=== PATIENT | male | born 1950 | race Caucasian/White ===

== ENCOUNTER → 2017-07-20 | Outpatient (CLI) | payer MEDICARE ==
--- NOTE | 2017-07-20 14:51 | CARD ---
MR#: [id number] Date of Study: 07/20/2017 Ordering Physician: JONATHON HOWARD, Referring Physician: JONATHON HOWARD, Tech: CHELY Sanchez APPROVED REPORT EXAM: Two-dimensional and M-mode echocardiogram with Doppler and color Doppler. Other Information Quality : GoodHR: 73bpm INDICATION Atrial Fibrillation 2D DIMENSIONS Left Atrium(2D)2.9 (1.6-4.0cm)IVSd1.0 (0.7-1.1cm) Aortic Root(2D)3.3 (2.0-3.7cm)LVDd4.2 (3.9-5.9cm) LVOT Diameter2.0 (1.8-2.4cm)PWd1.3 (0.7-1.1cm) LVDs2.5 (2.5-4.0cm)FS (%) 41.9 % SV59.0 mlLVEF(%)73.2 (>50%) Aortic Valve AoV Peak Rosales.172.4cm/sAoV VTI34.6cm AO Peak GR.11.9mmHgLVOT Peak Rosales.104.5cm/s LVOT VTI 20.41cmAO Mean GR.6mmHg JARETT (VMAX)2.38cl8OGO (VTI)1.94cm2 Mitral Valve MV E Grpeyuql42.2cm/sMV DECEL THLN710gx MV A Dtfvuxcv26.3cm/sE/A Ratio1.3 Pulmonary Valve PV Peak Eqacbpux850.3cm/sPV Peak Grad.5mmHg Tricuspid Valve TR P. Slhebxxk910cj/sTR Peak Gr.29mmHg Pulmonary Vein S1 Shkugjga21.0cm/sD2 Yeebrndf01.6cm/s LEFT VENTRICLE The left ventricle is normal size. There is mild hypertrophy of LVPW. The left ventricular systolic f unction is normal. The ejection fraction is estimated at 65%. There is normal LV segmental wall motio n. The left ventricular diastolic function and filling is normal for age. RIGHT VENTRICLE The right ventricle is normal size. The right ventricular systolic function is normal. ATRIA The left atrium size is normal. The right atrium size is normal. The interatrial septum is intact wit h no evidence for an atrial septal defect or patent foramen ovale as noted on 2-D or Doppler imaging. AORTIC VALVE The aortic valve is thickened but opens well. Doppler and Color Flow revealed no significant aortic r egurgitation. There is no significant aortic valvular stenosis. There is no aortic valvular vegetatio n. MITRAL VALVE The mitral valve is thickened but opens well. There is no evidence of mitral valve prolapse. There is no mitral valve stenosis. Doppler and Color Flow revealed no mitral valve regurgitation noted. TRICUSPID VALVE The tricuspid valve is normal in structure and function. Doppler and Color Flow revealed no tricuspid valve regurgitation noted. There is no tricuspid valve prolapse or vegetation. There is no tricuspid valve stenosis. PULMONIC VALVE The pulmonic valve is not well visualized. Doppler and Color Flow revealed no pulmonic valvular regur gitation. There is no pulmonic valvular stenosis. GREAT VESSELS The aortic root is normal in size. The IVC is normal in size and collapses >50% with inspiration. PERICARDIAL EFFUSION There is no pleural effusion. There is no evidence of significant pericardial effusion. Critical Notification Critical Value: No <Conclusion> The left ventricular systolic function is normal. The ejection fraction is estimated at 65%. There is normal LV segmental wall motion. There is no evidence of significant pericardial effusion. Signed by : Jonathon Howard, Electronically Approved : 07/20/2017 14:50:14
== END | disposition home or self-care (01) ==
LOC: ECHO 13:52
PROVIDERS: ATTEND Internal Medicine Cardiovascular Disease
DX: I48.0 Paroxysmal atrial fibrillation (principal)
CPT/HCPCS: 93306

== ENCOUNTER → 2018-07-26 | Outpatient (CLI) | payer MEDICARE ==
--- NOTE | 2018-07-26 09:53 | CARD ---
MR#: [id number] Date of Study: 07/26/2018 Ordering Physician: NEERU HEATON, Referring Physician: NEERU HEATON, Tech: Sarina Burns RDCS APPROVED REPORT EXAM: Two-dimensional and M-mode echocardiogram with Doppler and color Doppler. Other Information Quality : GoodHR: 70bpm Rhythm : NSR INDICATION Atrial Fibrillation 2D DIMENSIONS RVDd3.4 (2.9-3.5cm)Left Atrium(2D)3.4 (1.6-4.0cm) IVSd0.9 (0.7-1.1cm)Aortic Root(2D)3.1 (2.0-3.7cm) LVDd4.4 (3.9-5.9cm)LVOT Diameter2.3 (1.8-2.4cm) PWd1.0 (0.7-1.1cm)LVDs3.2 (2.5-4.0cm) FS (%) 26.3 %SV44.2 ml LVEF(%)52.0 (>50%) M-Mode DIMENSIONS Left Atrium(MM)3.68 (2.5-4.0cm)Aortic Root3.54 (2.2-3.7cm) Aortic Valve AoV Peak Rosales.118.6cm/sAoV VTI25.8cm AO Peak GR.5.6mmHgLVOT Peak Rosales.100.9cm/s LVOT VTI 25.72cmAO Mean GR.2mmHg JARETT (VMAX)3.57wp2KCA (VTI)3.97cm2 Mitral Valve MV E Mtojtjno26.9cm/sMV DECEL OMDT964cu MV A Vjzbjddb25.6cm/sE/A Ratio1.3 Pulmonary Valve PV Peak Ndqevwxw799.2cm/sPV Peak Grad.5mmHg Tricuspid Valve TR P. Epqnhcsh051th/sRAP YFGCJVOB6dxRs TR Peak Gr.60beNcYSGJ42yxIl Pulmonary Vein S1 Aolsmcxf27.9cm/sD2 Wkcllszj60.5cm/s LEFT VENTRICLE The left ventricle is normal size. There is normal left ventricular wall thickness. The left ventricu lar systolic function is normal. The Ejection Fraction is 55-60%. There is normal LV segmental wall m otion. Transmitral Doppler flow pattern is Grade II-pseudonormal filling dynamics. RIGHT VENTRICLE The right ventricle is normal size. There is normal right ventricular wall thickness. The right ventr icular systolic function is normal. ATRIA The left atrium size is normal. The right atrium size is normal. The interatrial septum is intact wit h no evidence for an atrial septal defect or patent foramen ovale as noted on 2-D or Doppler imaging. AORTIC VALVE The aortic valve is normal in structure and function. The aortic valve is trileaflet. Doppler and Col or Flow revealed no significant aortic regurgitation. There is no significant aortic valvular stenosi s. MITRAL VALVE The mitral valve is normal in structure and function. There is no evidence of mitral valve prolapse. There is no mitral valve stenosis. Doppler and Color Flow revealed no mitral valve regurgitation note d. TRICUSPID VALVE The tricuspid valve is normal in structure and function. Doppler and Color Flow revealed trace tricus pid regurgitation. The PA pressure was estimated at 32 mmHg. There is no tricuspid valve prolapse or vegetation. There is no tricuspid valve stenosis. PULMONIC VALVE The pulmonary valve is normal in structure and function. Doppler and Color Flow revealed no pulmonic valvular regurgitation. There is no pulmonic valvular stenosis. GREAT VESSELS The aortic root is normal in size. The ascending aorta is normal in size. The IVC is normal in size a nd collapses >50% with inspiration. PERICARDIAL EFFUSION There is no evidence of significant pericardial effusion. Critical Notification Critical Value: No <Conclusion> The left ventricular systolic function is normal. The Ejection Fraction is 55-60%. There is normal LV segmental wall motion. Trace tricuspid regurgitation. The PA pressure was estimated at 32 mmHg. There is no evidence of significant pericardial effusion. Signed by : Dayron Howard, Electronically Approved : 07/26/2018 09:53:06
== END | disposition home or self-care (01) ==
LOC: ECHO 07:58
PROVIDERS: ATTEND Internal Medicine Cardiovascular Disease
DX: I48.0 Paroxysmal atrial fibrillation (principal)
CPT/HCPCS: 93306

== ENCOUNTER → 2018-08-08 | Outpatient (CLI) | payer MEDICARE ==
--- NOTE | 2018-08-08 09:55 | RAD ---
MR#: [id number] Date of Study: 08/08/2018 Ordering Physician: NEERU GARCES, Referring Physician: NEERU GARCES, Tech: Carolina Morales RVT, [facility] APPROVED REPORT Patient Location: OUT-PATIENT Laterality:Bilateral Indications Grayscale images of the bilateral common carotid and carotid bifurcation reveals mild to moderate non obstructive plaque. Based on color Doppler and spectral imaging there is overall 0 to less than 50% s tenosis. No high-grade flow-limiting stenosis is identified in the external or internal carotid vesse ls. The bilateral vertebral velocities are antegrade and within normal limits. Normal ICA to CCA ratios b ilaterally. Risk Factors Hypertension: PAD Smoking Doppler Spectral Velocity Analysis Right Left pCCA 93/19 cm/spCCA 119/17 cm/s mCCA 84/14 cm/smCCA 94/15 cm/s dCCA 65/11 cm/sdCCA 100/13 cm/s ECA 120/14 cm/sECA 112/19 cm/s pICA 52/11 cm/spICA 74/17 cm/s Samuel 63/15 cm/smICA 86/19 cm/s dICA 64/17 cm/sdICA 94/27 cm/s Vert. 58/ cm/sVert. 64/ cm/s ICA/CCA 0.69ICA/CCA 0.79 Critical Notification Critical Value: No <Conclusion> No significant bilateral carotid occlusive disease. Signed by : Neeru Garces, Electronically Approved : 08/08/2018 09:54:59
--- NOTE | 2018-08-08 10:19 | RAD ---
MR#: [id number] Date of Study: 08/08/2018 Ordering Physician: NEERU GARCES, Referring Physician: NEERU GARCES, Tech: Carolina Morales RVT, [facility] APPROVED REPORT Patient Location: OUT-PATIENT Indications Claudication:Bilaterally Grayscale images of the bilateral lower extremity arterial vessels reveals mild diffuse plaque. There is a patent left SFA stent. Spectral waveforms in the bilateral common femoral, superficial femoral and popliteal vessels are bip hasic in nature without any significant flow-limiting stenosis noted. Below the knee there is bilateral three-vessel runoff without any significant obstruction noted. Risk Factors Hypertension Smoking Surgery/Intervention Angioplasty : Stent : Date : 2003 Site : Left P-M SFA VELOCITY AND DOPPLER WAVEFORM ANALYSIS RIGHT cm/secWaveformSeverity LEFT cm/secWaveform Severity pCFA 218.1BiphasicpCFA 173.5Biphasic Prof Fem Art. 90.0BiphasicProf Fem Art. Fem Art Prox. 122.2BiphasicFem Art Prox. 124.9Biphasic Fem Art Mid. 95.3BiphasicFem Art Mid. 140.3Biphasic Fem Art Dist. 125.9BiphasicFem Art Dist. 140.3Biphasic Pop Art(Fossa) 56.2BiphasicPop Art(AK) 96.0Biphasic ROUTER OPERATOR PIN Prox. 80.2BiphasicPTA Prox. 65.3Biphasic ROUTER OPERATOR PIN Dist. 69.4BiphasicPTA Dist. 76.8Biphasic Per Art Prox. 48.8BiphasicPer Art Prox. 58.6Biphasic ESTRADA Prox. 69.4MonophasicATA Prox. 90.4Biphasic DPA 54BiphasicDPA 64Biphasic Critical Notification Critical Value: No <Conclusion> 1. Mild lower extremity arterial disease without any focal obstruction noted and a patent left SFA st ent. Signed by : Neeru Garces, Electronically Approved : 08/08/2018 10:19:05
== END | disposition home or self-care (01) ==
LOC: US 07:59
PROVIDERS: ATTEND Internal Medicine Cardiovascular Disease
DX: I65.23 Occlusion and stenosis of bilateral carotid arteries (principal); I77.89 Other specified disorders of arteries and arterioles; I10 Essential (primary) hypertension; I73.9 Peripheral vascular disease, unspecified; F17.200 Nicotine dependence, unspecified, uncomplicated
CPT/HCPCS: 93880; 93925

== ENCOUNTER → 2019-05-16 | Outpatient (CLI) | payer MEDICARE ==
[~2019-05-16] MED LIST: ASPI-630 PO; ATORVASTATIN CA80 MG PO; DILT120C55 PO; FLEC100T PO; LISI1TAB19 PO; MULT-245 PO
--- NOTE | 2019-05-16 12:20 | CARD ---
MR#: [id number] Date of Study: 05/16/2019 Ordering Physician: NEERU HEATON, Referring Physician: NEERU HEATON, Tech: Tracy Velez KATHERINE APPROVED REPORT EXAM: Two-dimensional and M-mode echocardiogram with Doppler and color Doppler. Other Information Quality : Good INDICATION Atrial Fibrillation RISK FACTORS Smoking 2D DIMENSIONS RVDd2.6 (2.9-3.5cm)Left Atrium(2D)2.9 (1.6-4.0cm) IVSd0.9 (0.7-1.1cm)Aortic Root(2D)3.3 (2.0-3.7cm) LVDd4.8 (3.9-5.9cm)LVOT Diameter2.0 (1.8-2.4cm) PWd0.9 (0.7-1.1cm)LVDs2.3 (2.5-4.0cm) FS (%) 30.0 %SV90.4 ml LVEF(%)60.0 (>50%) Aortic Valve AoV Peak Rosales.105.4cm/sAoV VTI21.0cm AO Peak GR.4.4mmHgAO Mean GR.2mmHg JARETT (VTI)2.97cm2 Mitral Valve MV E Paunudle64.9cm/sMV DECEL ZMIB188pp MV A Jumvqlzs40.9cm/sE/A Ratio1.4 Tricuspid Valve TR P. Eyltewjh578mp/sRAP EMHVRQDY7qdQk TR Peak Gr.07fiNyFJSP76bhMk LEFT VENTRICLE The left ventricle is normal size. There is normal left ventricular wall thickness. The left ventricu lar systolic function is normal and the ejection fraction is within normal range. The Ejection Fracti on is 60-65%. There is normal LV segmental wall motion. Transmitral Doppler flow pattern is Grade I-a bnormal relaxation pattern. RIGHT VENTRICLE The right ventricle is normal size. The right ventricular systolic function is normal. ATRIA The left atrium size is normal. The right atrium size is normal. The interatrial septum is intact wit h no evidence for an atrial septal defect or patent foramen ovale as noted on 2-D or Doppler imaging. AORTIC VALVE The aortic valve is calcified but opens well. Doppler and Color Flow revealed no significant aortic r egurgitation. There is no significant aortic valvular stenosis. MITRAL VALVE The mitral valve is calcified but opens well. There is no evidence of mitral valve prolapse. There is no mitral valve stenosis. Doppler and Color Flow revealed no mitral valve regurgitation noted. TRICUSPID VALVE The tricuspid valve is normal in structure and function. Doppler and Color Flow revealed trace tricus pid regurgitation. The PA pressure was estimated at 27 mmHg. There is no tricuspid valve stenosis. PULMONIC VALVE The pulmonic valve is not well visualized. Doppler and Color Flow revealed no pulmonic valvular regur gitation. There is no pulmonic valvular stenosis. GREAT VESSELS The aortic root is normal in size. The ascending aorta is normal in size. The IVC is normal in size a nd collapses >50% with inspiration. PERICARDIAL EFFUSION There is no evidence of significant pericardial effusion. Critical Notification Critical Value: No <Conclusion> The left ventricular systolic function is normal and the ejection fraction is within normal range. Th e Ejection Fraction is 60-65%. There is normal LV segmental wall motion. Signed by : Neeru Heaton, Electronically Approved : 05/16/2019 12:19:51
== END | disposition home or self-care (01) ==
LOC: ECHO 10:59
PROVIDERS: ATTEND Internal Medicine Cardiovascular Disease
DX: I08.0 Rheumatic disorders of both mitral and aortic valves (principal); I48.0 Paroxysmal atrial fibrillation
CPT/HCPCS: 93306

== ENCOUNTER → 2019-05-23 | Outpatient (CLI) | payer MEDICARE ==
[~2019-05-23] VITALS: Ht 182.9 cm; Wt 86.2 kg
[~2019-05-23] MED LIST changes: +REGADENOSON 0.4 MG/5 ML DISP.SYRIN. IV ONE
--- NOTE | 2019-05-23 12:34 | RAD ---
MR#: [id number] Date of Study: 05/23/2019 Ordering Physician: NEERU GARCES, Referring Physician: NEERU GARCES, Tech: Carolina Patel RVT, [facility] APPROVED REPORT Patient Location: OUT-PATIENT Indications PAD Grayscale images of the bilateral lower extremity arterial vessels demonstrate mild to moderate diffu se plaque. There is a left SFA stent which appears to be patent. Color Doppler, spectral images and velocities are grossly within normal limits. Mildly elevated veloc ities at the level of the bilateral common femoral arteries but no focal stenosis is identified. Biph asic waveforms seen throughout the lower extremity arterial course with three-vessel runoff below the knee bilaterally. Risk Factors Hypertension Surgery/Intervention Stent : VELOCITY AND DOPPLER WAVEFORM ANALYSIS RIGHT cm/secWaveformSeverity LEFT cm/secWaveform Severity pCFA 229.6BiphasicpCFA 174.1Biphasic Prof Fem Art. 90.0BiphasicProf Fem Art. 76.0Biphasic Fem Art Prox. 133.0BiphasicFem Art Prox. 108.7Biphasic Fem Art Mid. 94.5BiphasicFem Art Mid. 141.0Biphasic Fem Art Dist. 194.6BiphasicFem Art Dist. 102.5Biphasic Pop Art(Fossa) 75.7BiphasicPop Art(AK) 67.7Biphasic CRUISE STAFF MEMBER Prox. 72.2BiphasicPTA Prox. 77.8Biphasic CRUISE STAFF MEMBER Dist. 86.9BiphasicPTA Dist. 93.2Biphasic Per Art Prox. 50.1BiphasicPer Art Prox. 69.4Biphasic ESTRADA Prox. 59.5BiphasicATA Prox. 72.9Biphasic DPA 50BiphasicDPA 84Biphasic Critical Notification Critical Value: No <Conclusion> 1. No significant bilateral lower extremity arterial disease noted. There is a patent left SFA stent. Signed by : Neeru Garces, Electronically Approved : 05/23/2019 12:33:57
--- NOTE | 2019-05-23 15:27 | RAD ---
MR#: [id number] Date of Study: 05/23/2019 Ordering Physician: NEERU GARCES, Referring Physician: JUSTINO HOFF Tech: HARRY Magallanes ARRT (R) (N) APPROVED REPORT Test Type: Pharmacological Stress Nurse/Tech: TAMANNA Chavez Test Indications: paroxysmal a-fib Cardiac History: High cholesterol, Hypertension Medications: See Electronic Medical Record Medical History: See Electronic Medical Record Resting ECG: SR Resting Heart Rate: 55 bpm Resting Blood Pressure: 136/64mmHg Pretest Chest Pain: None Nurse/Tech Notes SR Consent: The procedure was explained to the patient in lay terms. Informed consent was witnessed. Eddy eout was entered into [employer]. History and Stress Test performed by HARRY Magallanes ARRT (R) (N) Pharm. Details Pharmacologic stress testing was performed using 0.4mg per 5ml of regadenoson given intravenously ove r 7-10 seconds. Stress Symptoms SR, NO ACUTE SIGNIFICANT, ACUTE CHANGES WITH STRESS POST EXERCISE Reason for Termination: Infusion complete Target HR: No Max HR: 112 bpm 86% of Maximum Predicted HR: 129 bpm Exercise duration: 6 min:sec, Stage Max Blood Pressure: 169/67mmHg Blood Pressure response to exercise: Normal blood pressure response during stress. Chest Pain: No. Arrhythmia: No. ST Change: No. INTERPRETATION Stress EKG Conclusion: No acute findings Imaging Protocol IMAGE PROTOCOL: Rest Tc-99m/stress Tc-99m 1 day Rest: Stress: Viability: Radiopharm.Tc99m EpdivvpknSg83p Sestamibi Cvvd62xEh 33mCi Img Date 05/23/2019 05/23/2019 Inj-Img Vyor80gun. 60min. Rest Admin Site:IV - Right AntecubitalAdministrator: HARRY Magallanes ARRT (R)(N) Stress Admin Site: IV - Right AntecubitalAdministrator: HARRY Magallanes ARRT (R)(N) STRESS DATA End Diast. Vol.85.0mlAv. Heart Rate66.0bpm End Syst. Vol.17.0mlCO Index BSA0.0L/min Myocardial Btsy640.0gEject. Lxfqvuwp73.0% Stress Rates Pk. Fill Rate2.66EDV/secLVtime Pk. Fill 153.58msec Pk. Empty Rate3.94ESV/secLVtime Pk. Uyzrz650.80msec 1/3 Pk. Fill1.56EDV/sec Stress Scores Regional WT0.00Summed WT0.00 Regional WM0.00Summed WM3.00 The rest and stress images show normal perfusion, normal contraction and thickening. LV Perf. Quant 17 Seg. SSS2.00 17 Seg. SRS6.00 17 Seg. SDS0.00 Stress Defect Extent (% LAD)0.00Rest Defect Extent (% LAD)1.90Rev. Defect Extent (% LAD)0.00 Stress Defect Extent (% LCX) 0.00Rest Defect Extent (% LCX)0.00Rev. Defect Extent (% LCX)0.00 Stress Defect Extent (% RCA)0.00Rest Defect Extent (% RCA)4.40Rev. Defect Extent (% RCA)0.00 Stress Defect Extent (% ROHAN)1.50Rest Defect Extent (% ROHAN)6.30Rev. Defect Extent (% ROHAN)0.00 Other Information Quality:Average Risk Assessment: Low Risk Conclusion 1. No evidence of EKG changes with stress testing. 2. Normal perfusion at stress/rest. 3. Low risk study. 4. EF > 60%. Signed by : Neeru Garces, Electronically Approved : 05/23/2019 15:26:49
== END ==
LOC: NM 08:02
PROVIDERS: ATTEND Internal Medicine Cardiovascular Disease
DX: I48.0 Paroxysmal atrial fibrillation (principal); I73.9 Peripheral vascular disease, unspecified
CPT/HCPCS: 78452; 93017; 93925; A9500; J2785

== ENCOUNTER → 2019-08-15 | Day surgery (SDC) | payer MEDICARE ==
[~2019-08-15] MED LIST changes: +IPRATRPIUM/ALBUTEROL 0.5/2.5MG 3 ML NEBU. NEB PRN; +IV RINGERS SOLUTION,LACTATED 1,000 ML IV SCH; +PROPOFOL 10,000 MCG/ML (20ML) VIAL IV ONE; -REGADENOSON 0.4 MG/5 ML DISP.SYRIN. IV ONE
[2019-08-15 09:50] VITALS: BP 127/71
== END ==
LOC: SURG 07:34
PROVIDERS: ATTEND Internal Medicine Gastroenterology
DX: Z12.11 Encounter for screening for malignant neoplasm of colon (principal); D12.5 Benign neoplasm of sigmoid colon; D12.4 Benign neoplasm of descending colon; K62.1 Rectal polyp; I10 Essential (primary) hypertension; E78.00 Pure hypercholesterolemia, unspecified; I48.91 Unspecified atrial fibrillation; J44.9 Chronic obstructive pulmonary disease, unspecified; Z86.010 Personal history of colon polyps; Z85.51 Personal history of malignant neoplasm of bladder; Z79.82 Long term (current) use of aspirin; Z87.39 Personal history of other diseases of the musculoskeletal system and connective tissue
CPT/HCPCS: 45385; J2704; J7120

== ENCOUNTER → 2020-02-09 | Outpatient (CLI) | payer MEDICARE ==
[2019-08-15 09:50] VITALS: BP 127/71
[~2020-02-09] MED LIST changes: -IPRATRPIUM/ALBUTEROL 0.5/2.5MG 3 ML NEBU. NEB PRN; -IV RINGERS SOLUTION,LACTATED 1,000 ML IV SCH; -LISI1TAB19 PO; +LISI1TAB37 PO; -PROPOFOL 10,000 MCG/ML (20ML) VIAL IV ONE
== END ==
LOC: LAB 08:30
PROVIDERS: ATTEND Nurse Anesthetist, Certified Registered
DX: Z01.812 Encounter for preprocedural laboratory examination (principal); H26.8 Other specified cataract; Z20.828 Contact with and (suspected) exposure to other viral communicable diseases
CPT/HCPCS: U0003

== ENCOUNTER → 2020-02-13 | Day surgery (SDC) | payer MEDICARE ==
[~2020-02-13] MED LIST changes: +BALANCED SALT IRRIG OPHTH SOLN 15 ML BOTTLE. IRR ONE; +CATARACT OPHTH GEL 0.5 ML SYRINGE. OD ONE; +CHONDROIT-SOD-HYALURONATE KIT. OD ONE; +EPINEPHrine AMPULE 0.5 MG in BALANCED SALT IRRIG SOLN PLUS 500 ML IO ONE; +ERYTHROMYCIN 0.5% OPHTH OINTMENT 1GM TUBE. OD ONE; +HYALURONIDASE 75UNITS in LIDOCAINE 2% PF OPHTH 10 ML SYRINGE. OD ONE; +IPRATRPIUM/ALBUTEROL 0.5/2.5MG 3 ML NEBU. NEB PRN; +IV RINGERS SOLUTION,LACTATED 1,000 ML IV SCH; +KETOROLAC TROMETHAMINE 0.5% OPHTH SOLUTION BOTTLE. OD SCH; +MIDAZOLAM HCL PF 2 MG/2 ML VIAL. IV ONE; +MOXIFLOXACIN 0.5% OPHTH SOLUTION 3ML BOTTLE. OD SCH; +POVIDONE-IODINE 5% OPHTH SOLUTION 30ML BOTTLE. OD ONE; +PROPOFOL 10,000 MCG/ML (20ML) VIAL IV ONE; +TETRACAINE 0.5% OPHTH SOLUTION 4ML BOTTLE. OD ONE; +TETRACAINE 0.5% OPHTH SOLUTION 4ML BOTTLE. OU ONE; +prednisoLONE ACETATE 1% OPHTH SUSPENSION 5ML BOTTLE. OD SCH
[2020-02-13] MEDS: MOXIFLOXACIN 0.5% OPHTH SOLUTION 3ML BOTTLE. OD SCH ×3 (07:22→07:32)
--- NOTE | 2020-02-13 08:44 | PDOC4 ---
Phaco IOL/Cataract/OD Date of Procedure: Feb 13, 2020 Preoperative Diagnosis: Preoperative Diagnosis: Senile Cataract, Right Eye Postoperative Diagnosis: Senile Cataract, Right Eye Anesthesia: Local with monitored anesthesia care Surgeon: Chinmay Nair D.O. Procedure: Right Phacoemulsification with Intraocular Lens Implant Findings: Senile Cataract Indications: Worsening vision interfering with patient's lifestyle Narrative: After discussing the risks, complications and alternatives, including but not limited to loss of vision, infection, bleeding, swelling, anesthetic reaction, capsule rupture with vitreous loss, etc., the patient was given a peribulbar block under mild IV sedation and cardiac monitoring. Pressure was applied to the eye for approximately 10 minutes. The patient was transferred to the main operating room and was prepped and draped in the usual sterile fashion and positioned under the microscope. A lid speculum was placed. A temporal clear corneal incision was made with a keratome and viscoelastic was injected into the eye. A side port incision was made. A continuous tear capsulorrhexis was performed, then hydrodissection was accomplished with balanced salt solution. The phacoemulsification needle was placed in the eye and the nucleus was emulsified. The remaining cortical material was removed with the irrigation and aspiration apparatus. The capsule was polished as needed. The posterior capsule was noted to be clean and intact. Viscoelastic was injected into the eye inflating the capsular bag. An intraocular lens was injected into the eye, unfolding as desired and was positioned in the capsular bag. The viscoelastic was aspirated from the eye. The wound edges were hydrated with balanced salt solution and there were no leaks. Viscoelastic was injected over the limbal incisions. Antibiotic and steroid were placed on the eye. The lid speculum was removed, the eye patched shut and a Mcgowan shield applied. There were no complications and the patient was taken to the PACU in good condition. CHINMAY NAIR DO Feb 13, 2020 08:44
[2020-02-13 08:48] VITALS: BP 136/60
== END | disposition home or self-care (01) ==
LOC: SURG 07:01
PROVIDERS: ATTEND Ophthalmology
DX: H25.11 Age-related nuclear cataract, right eye (principal); I48.91 Unspecified atrial fibrillation; I10 Essential (primary) hypertension; E78.5 Hyperlipidemia, unspecified; I49.9 Cardiac arrhythmia, unspecified; E78.00 Pure hypercholesterolemia, unspecified; F17.210 Nicotine dependence, cigarettes, uncomplicated; M19.90 Unspecified osteoarthritis, unspecified site; Z96.651 Presence of right artificial knee joint; Z79.899 Other long term (current) drug therapy; Z86.010 Personal history of colon polyps; Z98.890 Other specified postprocedural states; Z79.82 Long term (current) use of aspirin
CPT/HCPCS: 66984; J0171; J2704; V2632

== ENCOUNTER → 2020-02-23 | Outpatient (CLI) | payer MEDICARE ==
[2020-02-13 08:48] VITALS: BP 136/60
[~2020-02-23] MED LIST changes: -BALANCED SALT IRRIG OPHTH SOLN 15 ML BOTTLE. IRR ONE; -CATARACT OPHTH GEL 0.5 ML SYRINGE. OD ONE; -CHONDROIT-SOD-HYALURONATE KIT. OD ONE; -EPINEPHrine AMPULE 0.5 MG in BALANCED SALT IRRIG SOLN PLUS 500 ML IO ONE; -ERYTHROMYCIN 0.5% OPHTH OINTMENT 1GM TUBE. OD ONE; -HYALURONIDASE 75UNITS in LIDOCAINE 2% PF OPHTH 10 ML SYRINGE. OD ONE; -IPRATRPIUM/ALBUTEROL 0.5/2.5MG 3 ML NEBU. NEB PRN; -IV RINGERS SOLUTION,LACTATED 1,000 ML IV SCH; -KETOROLAC TROMETHAMINE 0.5% OPHTH SOLUTION BOTTLE. OD SCH; -MIDAZOLAM HCL PF 2 MG/2 ML VIAL. IV ONE; -MOXIFLOXACIN 0.5% OPHTH SOLUTION 3ML BOTTLE. OD SCH; -POVIDONE-IODINE 5% OPHTH SOLUTION 30ML BOTTLE. OD ONE; -PROPOFOL 10,000 MCG/ML (20ML) VIAL IV ONE; -TETRACAINE 0.5% OPHTH SOLUTION 4ML BOTTLE. OD ONE; -TETRACAINE 0.5% OPHTH SOLUTION 4ML BOTTLE. OU ONE; -prednisoLONE ACETATE 1% OPHTH SUSPENSION 5ML BOTTLE. OD SCH
== END ==
LOC: LAB 08:54
PROVIDERS: ATTEND Nurse Anesthetist, Certified Registered
DX: Z01.818 Encounter for other preprocedural examination (principal); H26.9 Unspecified cataract; Z20.828 Contact with and (suspected) exposure to other viral communicable diseases
CPT/HCPCS: U0003

== ENCOUNTER → 2020-02-27 | Day surgery (SDC) | payer MEDICARE ==
[~2020-02-27] MED LIST changes: +BALANCED SALT IRRIG OPHTH SOLN 15 ML BOTTLE. IRR ONE; +CATARACT OPHTH GEL 0.5 ML SYRINGE. OS ONE; +CHONDROIT-SOD-HYALURONATE KIT. OS ONE; +EPINEPHrine AMPULE 0.5 MG in BALANCED SALT IRRIG SOLN PLUS 500 ML IO ONE; +ERYTHROMYCIN 0.5% OPHTH OINTMENT 1GM TUBE. OS ONE; +HYALURONIDASE 75UNITS in LIDOCAINE 2% PF OPHTH 10 ML SYRINGE. OS ONE; +IPRATRPIUM/ALBUTEROL 0.5/2.5MG 3 ML NEBU. NEB PRN; +IV RINGERS SOLUTION,LACTATED 1,000 ML IV SCH; +KETOROLAC TROMETHAMINE 0.5% OPHTH SOLUTION BOTTLE. OS SCH; +MIDAZOLAM HCL PF 2 MG/2 ML VIAL. IV ONE; +MOXIFLOXACIN 0.5% OPHTH SOLUTION 3ML BOTTLE. OS SCH; +POVIDONE-IODINE 5% OPHTH SOLUTION 30ML BOTTLE. OS ONE; +PROPOFOL 10,000 MCG/ML (20ML) VIAL IV ONE; +TETRACAINE 0.5% OPHTH SOLUTION 4ML BOTTLE. OS ONE; +TETRACAINE 0.5% OPHTH SOLUTION 4ML BOTTLE. OU ONE; +prednisoLONE ACETATE 1% OPHTH SUSPENSION 5ML BOTTLE. OS SCH
[2020-02-27] MEDS: MOXIFLOXACIN 0.5% OPHTH SOLUTION 3ML BOTTLE. OS SCH ×3 (07:08→07:18)
--- NOTE | 2020-02-27 08:02 | PDOC4 ---
Phaco IOL/Cataract/OS Date of Procedure: Feb 27, 2020 Preoperative Diagnosis: Senile Cataract, Left Eye Postoperative Diagnosis: Senile Cataract, Left Eye Anesthesia: Local (Block) with monitored anesthesia care Surgeon: Chinmay Nair D.O. Procedure: Left Phacoemulsification with Intraocular Lens Implant Findings: Senile Cataract Indications: Worsening vision interfering with patient's lifestyle Narrative: After discussing the risks, complications and alternatives, including but not limited to loss of vision, infection, bleeding, swelling, anesthetic reaction, capsule rupture with vitreous loss, etc., the patient was given a peribulbar block under mild IV sedation and cardiac monitoring. Pressure was applied to the eye for approximately 10 minutes. The patient was transferred to the main operating room and was prepped and draped in the usual sterile fashion and positioned under the microscope. A lid speculum was placed. A temporal clear corneal incision was made with a keratome and viscoelastic was injected into the eye. A side port incision was made. A continuous tear capsulorrhexis was performed, then hydrodissection was accomplished with balanced salt solution. The phacoemulsification needle was placed in the eye and the nucleus was emulsified. The remaining cortical material was removed with the irrigation and aspiration apparatus. The capsule was polished as needed. The posterior capsule was noted to be clean and intact. Viscoelastic was injected into the eye inflating the capsular bag. An intraocular lens was injected into the eye, unfolding as desired and was positioned in the capsular bag. The viscoelastic was aspirated from the eye. The wound edges were hydrated with balanced salt solution and there were no leaks. Viscoelastic was injected over the limbal incisions. Antibiotic and steroid were placed on the eye. The lid speculum was removed, the eye patched shut and a Mcgowan shield applied. There were no complications and the patient was taken to the PACU in good condition. CHINMAY NAIR DO Feb 27, 2020 08:02
[2020-02-27 08:20] VITALS: BP 131/73
== END | disposition home or self-care (01) ==
LOC: SURG 06:34
PROVIDERS: ATTEND Ophthalmology
DX: H25.12 Age-related nuclear cataract, left eye (principal); I10 Essential (primary) hypertension; E78.5 Hyperlipidemia, unspecified; M19.90 Unspecified osteoarthritis, unspecified site; J44.9 Chronic obstructive pulmonary disease, unspecified; I48.0 Paroxysmal atrial fibrillation; F17.210 Nicotine dependence, cigarettes, uncomplicated; Z79.82 Long term (current) use of aspirin; Z96.651 Presence of right artificial knee joint; Z86.010 Personal history of colon polyps; Z79.899 Other long term (current) drug therapy; Z85.51 Personal history of malignant neoplasm of bladder; Z98.41 Cataract extraction status, right eye; Z87.39 Personal history of other diseases of the musculoskeletal system and connective tissue
CPT/HCPCS: 66984; J0171; J2704; V2632

== ENCOUNTER → 2020-03-05 | Outpatient (CLI) | payer MEDICARE ==
[2020-02-27 08:20] VITALS: BP 131/73
[~2020-03-05] MED LIST changes: -BALANCED SALT IRRIG OPHTH SOLN 15 ML BOTTLE. IRR ONE; -CATARACT OPHTH GEL 0.5 ML SYRINGE. OS ONE; -CHONDROIT-SOD-HYALURONATE KIT. OS ONE; -EPINEPHrine AMPULE 0.5 MG in BALANCED SALT IRRIG SOLN PLUS 500 ML IO ONE; -ERYTHROMYCIN 0.5% OPHTH OINTMENT 1GM TUBE. OS ONE; -HYALURONIDASE 75UNITS in LIDOCAINE 2% PF OPHTH 10 ML SYRINGE. OS ONE; -IPRATRPIUM/ALBUTEROL 0.5/2.5MG 3 ML NEBU. NEB PRN; -IV RINGERS SOLUTION,LACTATED 1,000 ML IV SCH; -KETOROLAC TROMETHAMINE 0.5% OPHTH SOLUTION BOTTLE. OS SCH; -MIDAZOLAM HCL PF 2 MG/2 ML VIAL. IV ONE; -MOXIFLOXACIN 0.5% OPHTH SOLUTION 3ML BOTTLE. OS SCH; -POVIDONE-IODINE 5% OPHTH SOLUTION 30ML BOTTLE. OS ONE; -PROPOFOL 10,000 MCG/ML (20ML) VIAL IV ONE; -TETRACAINE 0.5% OPHTH SOLUTION 4ML BOTTLE. OS ONE; -TETRACAINE 0.5% OPHTH SOLUTION 4ML BOTTLE. OU ONE; -prednisoLONE ACETATE 1% OPHTH SUSPENSION 5ML BOTTLE. OS SCH
--- NOTE | 2020-03-05 15:53 | RAD ---
CT LOW DOSE LUNG SCREEN INDICATION: History of smoking. COMPARISON STUDY: None. TECHNIQUE: Unenhanced axial images were obtained through the lungs and upper abdomen using low dose technique. Coronal and sagittal multiplanar reformatted images were also obtained. PQRS compliance statement: One or more of the following individualized dose reduction techniques were utilized for this examinat ion: 1. Automated exposure control 2. Adjustment of the mA and/or kV according to patient size 3. Use of iterative reconstruction technique FINDINGS: Lung Nodules: Several small indeterminate nodules with patient care representative nodules as follows: Right lower lobe 5 mm solid nodule (series 2 image 52), right lower lobe 5 mm solid nodule (image 65), left uppe r lobe 4 mm solid nodule (image 42). Lungs and Airways: No pulmonary mass or consolidation. Paraseptal and centrilobular emphysema. Normal central airways. Pleura: Normal pleural spaces. Heart and Mediastinum: The visualized portions of the thyroid gland are normal in size and attenuatio n. No axillary or supraclavicular lymphadenopathy. No mediastinal, hilar or retrocrural lymphadenopat hy. Normal cardiac size. No pericardial effusion. Coronary artery atherosclerotic disease. Atheroscle rosis of the thoracic aorta. Abdomen: The visualized abdominal organs demonstrate no abnormality. Bones and Soft Tissues: The visualized skeletal structures and soft tissues of the chest wall are wit hin normal limits. IMPRESSION: 1. Several indeterminate pulmonary nodules measuring less than 6 mm. Lung-RADS Category: 2 Management Recommendation: Follow up low-dose chest CT in one year. 2. Emphysema. 3. Coronary artery atherosclerotic disease. Electronically signed by: Armand Whitmore MD (03/05/2020 3:50 PM) [id number]
== END ==
LOC: CT 09:45
PROVIDERS: ATTEND Family Medicine
DX: Z12.2 Encounter for screening for malignant neoplasm of respiratory organs (principal); J43.2 Centrilobular emphysema; I25.10 Atherosclerotic heart disease of native coronary artery without angina pectoris; R91.8 Other nonspecific abnormal finding of lung field; I70.0 Atherosclerosis of aorta; Z87.891 Personal history of nicotine dependence
CPT/HCPCS: G0297

== ENCOUNTER → 2020-07-22 | Outpatient (CLI) | payer MEDICARE ==
[2020-02-27 08:20] VITALS: BP 131/73
--- NOTE | 2020-07-22 18:32 | RAD ---
MR#: [id number] Date of Study: 07/22/2020 Ordering Physician: NEERU GARCES, Referring Physician: NEERU GARCES, Tech: Carolina Patel Andry, [facility] APPROVED REPORT Patient Location: OUT-PATIENT Laterality:Bilateral Indications Grayscale images of the bilateral carotid vessels demonstrate mild intimal hyperplasia and mild diffu se atherosclerosis. Based on spectral waveforms and color Doppler and velocities overall 0 to less t castillo 50% stenosis involving the bilateral internal carotid arteries. Mild to moderate external caroti d arterial disease is noted. Antegrade vertebral velocities with normal ICA to CCA ratios are noted. Risk Factors Hypertension: PAD Smoking Doppler Spectral Velocity Analysis Right Left pCCA 116/15 cm/spCCA 131/23 cm/s mCCA 81/17 cm/smCCA 121/20 cm/s dCCA 86/17 cm/sdCCA 114/18 cm/s ECA 123/13 cm/sECA 128/14 cm/s pICA 66/14 cm/spICA 69/13 cm/s Samuel 62/16 cm/smICA 79/18 cm/s dICA 56/14 cm/sdICA 82/30 cm/s Vert. 62/7 cm/sVert. 58/15 cm/s ICA/CCA 0.80ICA/CCA 0.70 Critical Notification Critical Value: No <Conclusion> 1. No significant carotid occlusive disease bilaterally Signed by : Neeru Garces, Electronically Approved : 07/22/2020 18:31:41
--- NOTE | 2020-07-22 18:34 | RAD ---
MR#: [id number] Date of Study: 07/22/2020 Ordering Physician: NEERU GARCES, Referring Physician: NEERU GARCES, Tech: Carolina Patel RVT RDMS APPROVED REPORT Patient Location: OUT-PATIENT Exam Type: Ankle to Brachial Index Indications Claudication: Numbness/Tingling PAD Normal bilateral CARIN as noted above Risk Factors Hypertension Smoking Surgery/Intervention Stent : LEFT LEG Pressures/Indices RightABI LeftABI Brachial [id number] [id number] Ankle(PT) 139mmHgAnkle(PT) 154mmHg Ankle(DP) 138mmHgAnkle(DP) 148mmHg Critical Notification Critical Value: No <Conclusion> 1. Normal bilateral ABIs noted above Signed by : Neeru Garces, Electronically Approved : 07/22/2020 18:34:36
--- NOTE | 2020-07-22 18:34 | RAD ---
MR#: [id number] Date of Study: 07/22/2020 Ordering Physician: NEERU GARCES, Referring Physician: NEERU GARCES, Tech: Carolina Patel RVT MS APPROVED REPORT Patient Location: OUT-PATIENT Indications Numbness/Tingling PAD Grayscale images of the bilateral lower extremity arterial vessels demonstrate moderate diffuse ather osclerotic plaque. On the right side there are mostly biphasic waveforms with normal velocities. There is three-vessel runoff below the knee. In the left side there again mostly biphasic waveforms throughout the lower extremity arterial course . There is three-vessel runoff. There is a stent noted in the left SFA with mildly elevated velocit ies suggestive of approximately 50% stenosis. Risk Factors Hypertension Smoking Surgery/Intervention Stent : LEFT SFA VELOCITY AND DOPPLER WAVEFORM ANALYSIS RIGHT cm/secWaveformSeverity LEFT cm/secWaveform Severity pCFA 163.8BiphasicpCFA 146.2Biphasic dCFA dCFA Prof Fem Art. 93.0BiphasicProf Fem Art. 77.0Biphasic Fem Art Prox. 127.3BiphasicFem Art Prox. 155.5Biphasic Fem Art Mid. 88.2BiphasicFem Art Mid. 153.6Biphasic Fem Art Dist. 163.1BiphasicFem Art Dist. 207.1Biphasic Pop Art(Fossa) 69.4BiphasicPop Art(AK) 77.4Biphasic PARCEL POST [employer]RIER Prox. 72.3BiphasicPTA Prox. 74.6Biphasic PARCEL POST CARRIER Dist. 85.0BiphasicPTA Dist. 65.4Biphasic Per Art Prox. 48.6BiphasicPer Art Prox. 60.2Biphasic ESTRADA Prox. 81.9BiphasicATA Prox. 85.7Biphasic DPA 27BiphasicDPA 75Biphasic BYPASS GRAFT ANALYSIS RIGHT cm/secWaveform SeverityLEFT cm/secWaveformSeverity Proximal Proximal 114Biphasic Biphasic Mid Mid 182.0Biphasic Distal Distal 124.0Biphasic Critical Notification Critical Value: No <Conclusion> 1. No significant lower extremity arterial disease with three-vessel runoff bilaterally Signed by : Neeru Garces, Electronically Approved : 07/22/2020 18:34:07
== END ==
LOC: US 09:48
PROVIDERS: ATTEND Internal Medicine Cardiovascular Disease
DX: I65.23 Occlusion and stenosis of bilateral carotid arteries (principal); I10 Essential (primary) hypertension; F17.200 Nicotine dependence, unspecified, uncomplicated
CPT/HCPCS: 93880; 93922; 93925

== ENCOUNTER → 2021-01-13 | Outpatient (CLI) | payer MEDICARE ==
[2020-02-27 08:20] VITALS: BP 131/73
--- NOTE | 2021-01-13 10:02 | RAD ---
CT LOW DOSE LUNG SCREEN INDICATION: History of smoking. COMPARISON STUDY: None. TECHNIQUE: Unenhanced axial images were obtained through the lungs and upper abdomen using low dose technique. Coronal and sagittal multiplanar reformatted images were also obtained. PQRS compliance statement: One or more of the following individualized dose reduction techniques were utilized for this examinat ion: 1. Automated exposure control 2. Adjustment of the mA and/or kV according to patient size 3. Use of iterative reconstruction technique FINDINGS: Lung Nodules: Stable small pulmonary nodules with registration representative nodule as follows: Right lower lobe 4 mm solid nodule (series 2 image 260). Lungs and Airways: No pulmonary mass or consolidation. Paraseptal and centrilobular emphysema. Normal central airways. Pleura: Normal pleural spaces. Heart and Mediastinum: The visualized portions of the thyroid gland are normal in size and attenuatio n. No axillary or supraclavicular lymphadenopathy. No mediastinal, hilar or retrocrural lymphadenopat hy. Normal cardiac size. No pericardial effusion. Coronary artery atherosclerotic disease. Atheroscle rosis of the thoracic aorta. Abdomen: The visualized abdominal organs demonstrate no abnormality. Bones and Soft Tissues: Degenerative changes of the spine. IMPRESSION: Stable small pulmonary nodules Lung-RADS Category: 2 Management Recommendation: Follow up low-dose chest CT in one year. Electronically signed by: Armand Whitmore MD (01/13/2021 9:59 AM) [id number]
== END ==
LOC: CT 09:21
PROVIDERS: ATTEND Family Medicine
DX: R91.8 Other nonspecific abnormal finding of lung field (principal); J43.2 Centrilobular emphysema; I25.10 Atherosclerotic heart disease of native coronary artery without angina pectoris; I70.0 Atherosclerosis of aorta; F17.210 Nicotine dependence, cigarettes, uncomplicated
CPT/HCPCS: 71271

== ENCOUNTER → 2021-07-29 | Outpatient (CLI) | payer MEDICARE ==
[2020-02-27 08:20] VITALS: BP 131/73
--- NOTE | 2021-07-29 18:04 | CARD ---
MR#: [id number] Date of Study: 07/29/2021 Ordering Physician: NEERU HEATON, Referring Physician: NEERU HEATON, Tech: Fernando Costello [facility] APPROVED REPORT EXAM: Two-dimensional and M-mode echocardiogram with Doppler and color Doppler. Other Information Quality : AverageHR: 65bpm Rhythm : NSR INDICATION Acute OR Cardiac Disease: CAD Paroxysmal atrial fibrillation RISK FACTORS Hypertension Hyperlipidemia Smoking 2D DIMENSIONS Left Atrium(2D)4.1 (1.6-4.0cm)IVSd0.9 (0.7-1.1cm) Aortic Root(2D)3.4 (2.0-3.7cm)LVDd4.6 (3.9-5.9cm) LVOT Diameter2.0 (1.8-2.4cm)PWd1.0 (0.7-1.1cm) LA Ggmthn06 (18-58mL)LVDs2.7 (2.5-4.0cm) FS (%) 40.7 %SV70.3 ml Aortic Valve AoV Peak Rosales.104.5cm/sAoV VTI21.6cm AO Peak GR.4.4mmHgLVOT Peak Rosales.102.9cm/s LVOT VTI 22.01cmAO Mean GR.2mmHg JARETT (VMAX)3.94jl3JMN (VTI)3.24cm2 Mitral Valve MV E Dtbwoydy72.6cm/sMV DECEL QANC260pn MV A Eqifeydz53.4cm/sE/A Ratio1.3 Pulmonary Valve PV Peak Nkszrggj453.0cm/sPV Peak Grad.5mmHg Tricuspid Valve TR P. Ckgeaqms822ol/sTR Peak Gr.39mmHg Pulmonary Vein S1 Vvtojcxo39.9cm/sD2 Ckrlfldg83.1cm/s LEFT VENTRICLE The left ventricle is normal size. There is normal left ventricular wall thickness. The left ventricu lar systolic function is normal. LV ejection fraction is 55 to 60%. There is normal LV segmental wall motion. The left ventricular diastolic function and filling is normal for age. No left ventricle thr ombus noted on this study. There is no ventricular septal defect visualized. There is no left ventric ular aneurysm. There is no mass noted in the left ventricle. RIGHT VENTRICLE The right ventricle is normal size. There is normal right ventricular wall thickness. The right ventr icular systolic function is normal. ATRIA The left atrium is borderline dilated. The right atrium size is normal. The interatrial septum is int act with no evidence for an atrial septal defect or patent foramen ovale as noted on 2-D or Doppler i maging. AORTIC VALVE The aortic valve is normal in structure and function. Doppler and Color Flow revealed no significant aortic regurgitation. There is no significant aortic valvular stenosis. There is no aortic valvular v egetation. MITRAL VALVE The mitral valve is normal in structure and function. There is no evidence of mitral valve prolapse. There is no mitral valve stenosis. Doppler and Color-flow revealed trace to mild mitral regurgitation . TRICUSPID VALVE The tricuspid valve is normal in structure and function. Doppler and Color Flow revealed trace tricus pid regurgitation. The PA pressure was estimated at 30 mmHg. There is no tricuspid valve prolapse or vegetation. There is no tricuspid valve stenosis. PULMONIC VALVE The pulmonary valve is normal in structure and function. Doppler and Color Flow revealed no pulmonic valvular regurgitation. There is no pulmonic valvular stenosis. GREAT VESSELS The aortic root is normal in size. The ascending aorta is normal in size. The pulmonary artery is nor mal. The IVC is normal in size and collapses >50% with inspiration. PERICARDIAL EFFUSION There is no pleural effusion. There is no evidence of significant pericardial effusion. Critical Notification Critical Value: No <Conclusion> The left ventricle is normal size. The left ventricular systolic function is normal. LV ejection fraction is 55 to 60%. Doppler and Color Flow revealed no significant aortic regurgitation. There is no significant aortic valvular stenosis. Doppler and Color-flow revealed trace to mild mitral regurgitation. Doppler and Color Flow revealed trace tricuspid regurgitation. The PA pressure was estimated at 30 mmHg. Signed by : Ashu Luciano MD Electronically Approved : 07/29/2021 18:04:16
== END ==
LOC: ECHO 09:47
PROVIDERS: ATTEND Internal Medicine Cardiovascular Disease
DX: I34.0 Nonrheumatic mitral (valve) insufficiency (principal); I48.0 Paroxysmal atrial fibrillation
CPT/HCPCS: 93306